=== PATIENT | female | born 1955 | race Caucasian/White ===

== ENCOUNTER 2024-01-02 07:50 | Outpatient (CLI) | payer OTHER ==
[~2024-01-02 07:50] MED LIST: DIOVAN HCT 80-11 TAB PO; GABAPENTIN100 MG PO; NORVASC5 MG PO; ORPH100T PO; PERCOCET 5/3251 TAB PO; XARELTO10 MG PO
== END 2024-01-02 07:52 | disposition home or self-care (01) ==
LOC: SONOGRAMA 07:50
PROVIDERS: ATTEND Pathology Anatomic Pathology & Clinical Pathology
DX: D34 Benign neoplasm of thyroid gland (principal); E06.3 Autoimmune thyroiditis; E07.89 Other specified disorders of thyroid; E04.8 Other specified nontoxic goiter